=== PATIENT | male | born 1995 | race Caucasian/White ===

== ENCOUNTER 2016-07-23 10:21 | Emergency (ER) | payer BC ==
[~2016-07-23] VITALS: Ht 175.3 cm; Wt 69.4 kg
[2016-07-23 10:29] VITALS: TEMP 36.7; Ht 175.3 cm; Wt 69.4 kg
[2016-07-23] MEDS ORDERED: SODIUM CHLORIDE 0.9% 1000ML 1,000 ML IV STA (10:43)
[2016-07-23] MEDS ORDERED: KETOROLAC TROMETHAMINE 30 MG/ML VIAL IV STA (10:43)
--- NOTE | 2016-07-23 10:45 | EMERGENCY ROOM VISIT NOTE ---
History Report prepared by Anjelica: Mayo Hernandez Under the Supervision of: Dr. Christian Kaiser D.O. First contact with patient: 10:31 Chief Complaint: FEVER Stated Complaint: FEVER,NAUSEA,CHILLS,LUMP ON L SIDE OF THROAT History of Present Illness The patient is a 20 year old male who presents to the Emergency Room with complaints of a persistent illness that started a couple months ago. He says that his illness has been persistent, but has been waxing and waning. Recently, the patient's illness has consisted of nauseousness, night sweats, runny nose, fever, fatigue, a slight cough, a bit on constipation, and a lump on the right side of his neck. He says that when the illness first started, he had bad congestion and his hearing had been in and out. The patient has been taking Sudafed and Advil. The patient tried taking Claritin in case he was having allergies. The patient denies any rashes, sore throat, or joint swelling. He has not been out of the country recently. He lives with a roommate, and the roommate has not been sick. He does work at public places, so the patient admits that he may have been exposed to sick people there. Per the patient's mom , the patient has had issues with backed-up intestines in the past. The patient does not take any daily medications. Source of History: patient, parent Onset: Couple months ago Position: other (global - illness) Timing: waxes/wanes, other (persistent) Associated Symptoms: + cough, + diaphoresis, + fatigue, + fevers Note: Associated symptoms: Congestion, lump on right side of neck. Denies rashes, sore throat, joint swelling. Review of Systems See HPI for pertinent positives & negatives. A total of 10 systems reviewed and were otherwise negative. Past Medical & Surgical Medical Problems: (1) No chronic problems Family History No pertinent family history Social History Smoking Status: Current Every Day Smoker Marital Status: single Housing Status: lives with roommate Occupation Status: student Current/Historical Medications Scheduled Amoxicillin & Pot Clavulanate (Augmentin 875-125 mg), 875 MG PO BID Allergies Coded Allergies: No Known Allergies (Unverified , 05/31/06) Physical Exam Vital Signs Date Time Temp Pulse Resp B/P Pulse Ox O2 Delivery O2 Flow Rate FiO2 07/23/16 13:13 55 18 113/69 97 07/23/16 11:14 61 14 121/77 99 Room Air 07/23/16 10:29 36.7 66 18 125/83 99 Room Air Physical Exam GENERAL: Patient is awake, alert, and in no acute distress. Patient is resting comfortably and showing no signs of anxiety EYES: The conjunctivae are clear. The pupils are round and reactive. EARS, NOSE, MOUTH AND THROAT: Mucous membranes moist, posterior oropharynx was erythematous with significant cobblestoning noted. TM's were clear bilaterally. NECK: The neck supple, nontender, left anterior cervical adenopathy noted RESPIRATORY: Normal respiratory effort is noted there is no evidence of wheezing rhonchi or rales CARDIOVASCULAR: Regular rate and rhythm noted there no murmurs rubs or gallops normal S1 normal S2 GASTROINTESTINAL: The abdomen is soft. Bowel sounds are present in all quadrants. Abdomen is nontender MUSCULOSKELETAL/EXTREMITIES: There is no evidence of gross deformity full range of motion is noted in the hips and shoulders SKIN: There is no obvious evidence of any rash. There are no petechiae, pallor or cyanosis noted. NEUROLOGIC: Patient is awake alert and oriented x3 strength is symmetric patellar reflexes are 2+ bilaterally Medical Decision & Procedures ER Provider Diagnostic Interpretation: X-ray results as stated below per interpretation by me and the radiologist. CHEST 2 VIEWS ROUTINE CLINICAL HISTORY: fever cough COMPARISON STUDY: No previous studies for comparison. FINDINGS: The bones soft tissues and hemidiaphragms are normal. The cardiomediastinal silhouette is normal. The lungs are clear. The pulmonary vasculature is normal. IMPRESSION: Negative chest. Electronically signed by: Jose Beebe M.D. 07/23/2016 12:20 PM Dictated Date/Time: 07/23/2016 12:20 PM Laboratory Results 07/23/16 11:00 Red Blood Count 5.39, Mean Corpuscular Volume 87.2, Mean Corpuscular Hemoglobin 31.0, Mean Corpuscular Hemoglobin Concent 35.5, Mean Platelet Volume 10.1, Neutrophils (%) (Auto) 61.3, Lymphocytes (%) (Auto) 21.4, Monocytes (%) (Auto) 6.8, Eosinophils (%) (Auto) 9.4, Basophils (%) (Auto) 0.8, Neutrophils # (Auto) 4.04, Lymphocytes # (Auto) 1.41, Monocytes # (Auto) 0.45, Eosinophils # (Auto) 0.62, Basophils # (Auto) 0.05 07/23/16 11:00 Test 07/23/16 00:00 07/23/16 11:00 07/23/16 11:15 White Blood Count 6.59 K/uL (4.8-10.8) Red Blood Count 5.39 M/uL (4.7-6.1) Hemoglobin 16.7 g/dL (14.0-18.0) Hematocrit 47.0 % (42-52) Mean Corpuscular Volume 87.2 fL (80-100) Mean Corpuscular Hemoglobin 31.0 pg (25-34) Mean Corpuscular Hemoglobin Concent 35.5 g/dl (32-36) Platelet Count 171 K/uL (130-400) Mean Platelet Volume 10.1 fL (7.4-10.4) Neutrophils (%) (Auto) 61.3 % Lymphocytes (%) (Auto) 21.4 % Monocytes (%) (Auto) 6.8 % Eosinophils (%) (Auto) 9.4 % Basophils (%) (Auto) 0.8 % Neutrophils # (Auto) 4.04 K/uL (1.4-6.5) Lymphocytes # (Auto) 1.41 K/uL (1.2-3.4) Monocytes # (Auto) 0.45 K/uL (0.11-0.59) Eosinophils # (Auto) 0.62 K/uL (0-0.5) Basophils # (Auto) 0.05 K/uL (0-0.2) RDW Standard Deviation 38.8 fL (36.4-46.3) RDW Coefficient of Variation 12.2 % (11.5-14.5) Immature Granulocyte % (Auto) 0.3 % Immature Granulocyte # (Auto) 0.02 K/uL (0.00-0.02) Anion Gap 4.0 mmol/L (3-11) Est Creatinine Clear Calc Drug Dose 139.9 ml/min Estimated GFR () 146.5 Estimated GFR (Non- 126.4 BUN/Creatinine Ratio 19.8 (10-20) Calcium Level 9.1 mg/dl (8.5-10.1) Total Bilirubin 0.8 mg/dl (0.2-1) Direct Bilirubin 0.2 mg/dl (0-0.2) Aspartate Amino Transf (AST/SGOT) 21 U/L (15-37) Alanine Aminotransferase (ALT/SGPT) 35 U/L (12-78) Alkaline Phosphatase 82 U/L (45-117) Total Protein 7.5 gm/dl (6.4-8.2) Albumin 4.5 gm/dl (3.4-5.0) Lipase 277 U/L (73-393) Monoscreen NEG (NEG) Urine Color YELLOW Urine Appearance CLEAR (CLEAR) Urine pH 8.5 (4.5-7.5) Urine Specific [place] 1.018 (1.000-1.030) Urine Protein NEG (NEG) Urine Glucose (UA) NEG (NEG) Urine Ketones NEG (NEG) Urine Occult Blood NEG (NEG) Urine Nitrite NEG (NEG) Urine Bilirubin NEG (NEG) Urine Urobilinogen NEG (NEG) Urine Leukocyte Esterase NEG (NEG) Laboratory results per my review. Medications Administered Medications (Trade) Dose Ordered Sig/Eugenio Route Start Time Stop Time Status Last Admin Dose Admin Ketorolac Tromethamine 30 mg 30 mg NOW STAT IV 07/23/16 10:43 07/23/16 10:45 DC 07/23/16 11:12 30 MG Sodium Chloride (Nss 1000ml) 1,000 ml @ 999 mls/hr Q1H1M STAT IV 07/23/16 10:43 07/23/16 11:43 DC 07/23/16 11:12 999 MLS/HR ED Course 1035: The patient was evaluated in room A7. A complete history and physical examination were performed. 1043: Ordered NSS 1000 ml @ 999 mls/hr IV, Toradol Inj 30 mg IV. 1238: Upon reevaluation, the patient is sitting up in bed. I discussed the results and treatment plan with him and his mother. The patient verbalized agreement of the treatment plan. He was discharged home. Medical Decision Differential diagnosis: Etiologies such as viral syndrome, otitis, pharyngitis, pneumonia, influenza, meningitis, urinary tract infection, sepsis, bacteremia, as well as others were entertained. Nursing notes reviewed. The patient is a 20-year-old male who presented to the emergency department for evaluation of fever. The patient describes multiple complaints including swollen lymph nodes on the left side of his neck. He did not have any meningismus or focal neurologic deficits. He does complain of congestion as well as postnasal drip. I do feel the patient's symptoms are likely related to sinusitis with upper respiratory infection. He has tried multiple decongestants. I recommended that he started course of antibiotic as well as Flonase. He was encouraged to follow-up with his primary care physician. He is already scheduled for a follow-up appointment with an ear nose and throat physician upcoming. He was encouraged to keep this appointment. I discussed the patient's laboratory and radiographic studies with him and his mother. He was encouraged to continue taking Motrin and Tylenol for fever and return to the emergency department immediately if symptoms change worsen or the need arises. Impression Primary Impression: Sinusitis Additional Impression: Adenitis Scribe Attestation The scribe's documentation has been prepared under my direction and personally reviewed by me in its entirety. I confirm that the note above accurately reflects all work, treatment, procedures, and medical decision making performed by me. Departure Information Dispostion Home / Self-Care Prescriptions Amoxicillin & Pot Clavulanate (Augmentin 875-125 mg) 1 Tab Tab 875 MG PO BID, #20 TAB Prov: hCristian Kaiser, DO 07/23/16 Referrals Henrik Roa M.D.([facility]) (PCP) Forms HOME CARE DOCUMENTATION FORM, IMPORTANT VISIT INFORMATION Patient Instructions My [facility] [address], Sinusitis Acute Additional Instructions Continue all medications as prescribed. Drink plenty of clear liquids. Continue to use Motrin and Tylenol as directed for fever and body aches. I would recommend starting a nasal spray such as Flonase for decongestion. Follow-up with ear nose and throat physician as scheduled. Problem Qualifiers Primary Impression: Sinusitis Sinusitis location: unspecified location Chronicity: acute Recurrence: non -recurrent Qualified Codes: J01.90 - Acute sinusitis, unspecified
[2016-07-23 11:17] LABS: BASO % 0.8 %; BASO ABS # 0.05 K/uL (0-0.2); COMPLETE YES; EOS % 9.4 %; IG% 0.3 %; LYMPH % 21.4 %; LYMPH ABS # 1.41 K/uL (1.2-3.4); MEAN CELL VOLUME 87.2 fL (80-100); MEAN CORPUSCULAR HGB CONC 35.5 g/dl (32-36); MEAN PLATELET VOLUME 10.1 fL (7.4-10.4); MONO % 6.8 %; NEUT % 61.3 %; PLATELET COUNT 171 K/uL (130-400); RED BLOOD COUNT 5.39 M/uL (4.7-6.1); WHITE BLOOD COUNT 6.59 K/uL (4.8-10.8)
[2016-07-23 11:36] LABS: URINE APPEARANCE CLEAR (CLEAR); URINE BILIRUBIN NEG (NEG); URINE COLOR YELLOW; URINE NITRITE NEG (NEG); URINE PH 8.5 (4.5-7.5); URINE SPECIFIC GRAVITY 1.018 (1.000-1.030); UROBILINOGEN NEG (NEG)
[2016-07-23 11:38] LABS: BUN/CREATININE RATIO 19.8 (10-20); CALCIUM 9.1 mg/dl (8.5-10.1); CREATININE 0.82 mg/dl (0.60-1.40); POTASSIUM 4.3 mmol/L (3.5-5.1)
[2016-07-23 11:39] LABS: MANUAL MICROSCOPIC REQUIRED? NO; REVIEW REQ? NO
--- NOTE | 2016-07-23 12:23 | DIAGNOSTIC IMAGING REPORT ---
CHEST 2 VIEWS ROUTINE CLINICAL HISTORY: fever cough COMPARISON STUDY: No previous studies for comparison. FINDINGS: The bones soft tissues and hemidiaphragms are normal. The cardiomediastinal silhouette is normal. The lungs are clear. The pulmonary vasculature is normal. IMPRESSION: Negative chest. Electronically signed by: Jose Beebe M.D. 07/23/2016 12:20 PM Dictated Date/Time: 07/23/2016 12:20 PM
[2016-07-23] MEDS ORDERED: AMOX875T PO (12:41)
[2016-07-23 13:13] VITALS: BP 113/69; PULSE 55; O2SAT 97
== END 2016-07-23 13:14 | disposition home or self-care (01) ==
LOC: C.EDB 10:23
DX: J32.9 Chronic sinusitis, unspecified (principal); I88.9 Nonspecific lymphadenitis, unspecified; F17.200 Nicotine dependence, unspecified, uncomplicated

== ENCOUNTER → 2016-08-25 | Outpatient (CLI) | payer BC ==
--- NOTE | 2016-08-25 14:46 | DIAGNOSTIC IMAGING REPORT ---
SCOLIOSIS 2 VIEW (AP LAT) CLINICAL HISTORY: Neck and back pain. Shoulder pain. COMPARISON STUDY: No previous studies for comparison. FINDINGS: There is a minimal S-shaped spinal curvature of less than 5 degrees. No fractures are visualized. IMPRESSION: Minimal S-shaped spinal curvature. Electronically signed by: Reed Mtz M.D. 08/25/2016 2:45 PM Dictated Date/Time: 08/25/2016 2:42 PM
== END | disposition home or self-care (01) ==
LOC: C.RAD 14:18
PROVIDERS: ATTEND Chiropractor
DX: M54.2 Cervicalgia (principal); M25.519 Pain in unspecified shoulder; M43.9 Deforming dorsopathy, unspecified